=== PATIENT | male | born 1980 | race Caucasian/White ===

== ENCOUNTER 2016-09-09 15:20 | Emergency (ER) | payer SELFPAY ==
[~2016-09-09] VITALS: Ht 185.4 cm; Wt 72.6 kg
[~2016-09-09 15:20] MED LIST: CEPH500C PO
[2016-09-09] MEDS ORDERED: LIDO15SO2 MM (17:16)
[2016-09-09] MEDS ORDERED: AMOX-358 PO (17:16)
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
[2016-09-09 17:25] VITALS: BP 166/107
== END 2016-09-09 17:25 | disposition home or self-care (01) ==
LOC: EDUNIT# 15:20 → ER 15:21
DX: K02.9 Dental caries, unspecified (principal); K04.7 Periapical abscess without sinus; F17.210 Nicotine dependence, cigarettes, uncomplicated
CPT/HCPCS: 99282

== ENCOUNTER 2017-08-18 19:09 | Emergency (ER) | payer SELFPAY ==
[~2017-08-18] VITALS: Ht 185.4 cm; Wt 72.6 kg
[~2017-08-18 19:09] MED LIST changes: +AMOX-358 PO; +LIDO15SO2 MM
[2017-08-18] MEDS ORDERED: DEXAMETHASONE PF 10 MG/ML (DECADRON) VIAL IV STA (20:54)
[2017-08-18] MEDS ORDERED: NS IV 1000 ML 1,000 ML IV ONE (20:54)
[2017-08-18] MEDS ORDERED: ONDANSETRON 4 MG/2 ML (SDV) Z0FRAN ONE (20:55)
[2017-08-18] MEDS ORDERED: NS IV 1000 ML 1,000 ML ONE (20:55)
[2017-08-18] MEDS ORDERED: ONDANSETRON 4 MG/2 ML (SDV) Z0FRAN IVP ONE (21:00)
[2017-08-18] MEDS ORDERED: DEXAMETHASONE 10 MG/ML (DECADRON) 1 ML VIAL ONE (21:49)
[2017-08-18] MEDS ORDERED: RX-ONDANSETRON 4 MG ODT (ZOFRAN) PPK #4 ONE (22:00)
[2017-08-18] MEDS ORDERED: RX-ONDANSETRON 4 MG ODT (ZOFRAN) PPK #4 PO STA (22:00)
--- NOTE | 2017-08-18 22:03 | ED Cough/URI ---
General Chief Complaint: Cough/Cold/Flu Symptoms Stated Complaint: COUGH,FEVER N/V/D Nursing Triage Note: PT REPORTS COUGH/COLD/CONGESTION SINCE WEDNESDAY. PT REPORTS VOMITING/DIAHRREA SINCE WEDNESDAY. History of Present Illness Date Seen by Provider: Aug 18, 2017 Time Seen by Provider: 19:55 Initial Comments 37-year-old male reports nausea and vomiting, for 2 days. He reports a cough and cold for 3 days. He denies a fever. Timing/Duration: intermittent Severity/Quality: dry cough Prior Episodes/Possible Cause: no prior episodes Modifying Factors: Improves With Rest Associated Symptoms: cough, other (nausea and vomiting) Allergies and Home Medications Allergies Coded Allergies: No Known Drug Allergies (Unverified , 03/20/14) Home Medications Amoxicillin/Potassium Clav 1 Each Tablet, 1 EACH PO BID, #20 Prescribed by: CELINE CHACKO on 09/09/161715 Lidocaine HCl 15 Ml Solution, 15 ML MM Q 1-2 HOURS, #1 Prescribed by: CELINE CHACKO on 09/09/161715 Constitutional: no symptoms reported, see HPI Respiratory: see HPI, cough Gastrointestinal: see HPI, nausea, vomiting All Other Systems Reviewed Negative Unless Noted: Yes Past Rvlohqk-Obfnxr-Umsxvi Hx Patient Social History Alcohol Use: Rarely Uses Number of Drinks Today: AA Alcohol Beverage of Choice: Beer Recreational Drug Use: No Smoking Status: Current Everyday Smoker Type Used: Cigarettes Recent Foreign Travel: No Contact w/Someone Who Travel: No Recent Infectious Disease Expo: No Recent Hopitalizations: No Physical Abuse: No Sexual Abuse: No Mistreated: No Fear: No Seasonal Allergies Seasonal Allergies: No Surgeries History of Surgeries: Yes Surgeries: Adenoidectomy, Tonsillectomy Respiratory History of Respiratory Disorde: No Cardiovascular History of Cardiac Disorders: No Neurological History of Neurological Disord: No Reproductive System Hx Reproductive Disorders: No Genitourinary History of Genitourinary Disor: No Gastrointestinal History of Gastrointestinal Di: No Musculoskeletal History of Musculoskeletal Dis: No Endocrine History of Endocrine Disorders: No HEENT History of HEENT Disorders: No Cancer History of Cancer: No Psychosocial History of Psychiatric Problem: No Suicide Risk Score: 0 Integumentary History of Skin or Integumenta: No Blood Transfusions History of Blood Disorders: No Reviewed Nursing Assessment Reviewed/Agree w Nursing PMH: Yes Family Medical History Significant Family History: No Pertinent Family Hx Family Medial History: Patient reports no known family medical history. Physical Exam Vital Signs Vital Sign - Last 12Hours 08/18/17 19:46 Temp 99.3 Pulse 99 Resp 18 B/P (MAP) 149/91 (110) Pulse Ox 98 O2 Delivery Room Air Capillary Refill : Less Than 3 Seconds General Appearance: WD/WN, no apparent distress Eyes: Bilateral Eye Normal Inspection, Bilateral Eye PERRL, Bilateral Eye EOMI HEENT: PERRL/EOMI, normal ENT inspection, TMs normal, pharynx normal Neck: non-tender, full range of motion, supple, normal inspection, No lymphadenopathy (R), No lymphadenopathy (L) Respiratory: chest non-tender, lungs clear, normal breath sounds, no respiratory distress, no accessory muscle use Cardiovascular: normal peripheral pulses, regular rate, rhythm, no murmur Gastrointestinal: normal bowel sounds, non tender, soft, No distended, No guarding, No rebound Neurologic/Psychiatric: alert, normal mood/affect, oriented x 3 Skin: normal color Progress/Results/Core Measures Suspected Sepsis Recent Fever Within 48 Hours: Yes Infection Criteria Present: None New/Unexplained Altered Menta: No Sepsis Screen: No Definite Risk Sepsis Diagnosis: SIRS Temperature:99.3 Pulse: 99 Respiratory Rate: 18 Blood Pressure 149 /91 Mean: 110 Results/Orders Micro Results Microbiology 08/18/17 Influenza Types A,B Antigen (NOEMI) - Final, Complete My Orders Orders - PEPE SHEPHERD Saline Lock/Iv-Start (08/18/17 20:54) Ns Iv 1000 Ml (Sodium Chloride 0.9%) (08/18/17 20:54) Ondansetron Injection (Zofran Injectio (08/18/17 21:00) Dexamethasone Pf Injection (Decadron Pf (08/18/17 20:54) Ondansetron Injection (Zofran Injectio (08/18/17 20:55) Ns Iv 1000 Ml (Sodium Chloride 0.9%) (08/18/17 20:55) Dexamethasone Injection (Decadron Inject (08/18/17 21:49) Rx-Ondansetron Po (Rx-Zofran Po) (08/18/17 22:00) Rx-Ondansetron Po (Rx-Zofran Po) (08/18/17 22:00) Medications Given in ED Current Medications Medications Dose Ordered Sig/Dutch Route Start Time Stop Time Status Last Admin Dose Admin Ondansetron HCl 4 mg ONCE ONCE IVP 08/18/17 21:00 08/18/17 21:01 DC 08/18/17 20:57 4 MG Sodium Chloride 1,000 ml @ 0 mls/hr Q0M ONCE IV 08/18/17 20:54 08/18/17 20:56 DC 08/18/17 20:57 1,000 MLS/HR Vital Signs/I&O Vital Sign - Last 12Hours 08/18/17 08/18/17 19:46 19:46 Temp 99.3 Pulse 99 Resp 18 B/P (MAP) 149/91 (110) Pulse Ox 98 O2 Delivery Room Air Capillary Refill : Less Than 3 Seconds Blood Pressure Mean: 110 Progress Note : Time: 19:55 Progress Note Initial evaluation completed, recommended normal saline 1 L IV. Zofran 4 mg IV for nausea. 2039 patient reports symptoms are improving. Discharge instructions and return precautions reviewed. All questions answered. Departure Impression Impression: Primary Impression: Cough Additional Impression: Nausea and vomiting Qualified Codes: G43.A1 - Cyclical vomiting, intractable Disposition: HOME, SELF-CARE Condition: Stable Departure-Patient Inst. Decision time for Depature: 22:00 Referrals: NO,LOCAL PHYSICIAN (PCP/Family) Primary Care Physician Patient Instructions: Cough, Adult (DC), Nausea and Vomiting, Adult (DC) Add. Discharge Instructions: Clear liquid diet for the next 6 hours. Then progress to bland food as tolerated. Alternate between ibuprofen 600 mg and Tylenol 650 mg every 4 hours for fever or pain. Use nlxj-thh-yynofno cough and cold medication as needed. Use Zofran as needed for nausea and vomiting. Follow-up with your primary care provider in one to 2 days if symptoms are not improving. Return to emergency department for fever greater than 101 not relieved by Tylenol or ibuprofen, nausea and vomiting not improving with Zofran or new problems. All discharge instructions reviewed with patient and/or family. Voiced understanding. Work/School Note: Work Release Form Date Seen in the Emergency Department: Aug 18, 2017 Return to Work: Aug 20, 2017 Restrictions: No Restrictions PEPE SHEPHERD Aug 18, 2017 22:03
[2017-08-18 22:06] VITALS: BP 137/88
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
== END 2017-08-18 22:06 | disposition home or self-care (01) ==
LOC: EDUNIT# 19:09 → ER 19:11
DX: R05 Cough (principal); R11.2 Nausea with vomiting, unspecified; F17.210 Nicotine dependence, cigarettes, uncomplicated; Z90.89 Acquired absence of other organs
CPT/HCPCS: 87804; 96361; 96374; 96375

== ENCOUNTER 2022-01-14 14:28 | Emergency (ER) | payer SELFPAY ==
[~2022-01-14] VITALS: Ht 185 cm; Wt 73.0 kg
[~2022-01-14 14:28] MED LIST changes: -LIDO15SO2 MM; +LIDO20SO23 MM
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
[2022-01-14 15:06] VITALS: BP 133/89
== END 2022-01-14 15:07 | disposition home or self-care (01) ==
LOC: EDUNIT# 14:28 → ER 14:29
DX: F41.0 Panic disorder [episodic paroxysmal anxiety] (principal); R06.4 Hyperventilation; R20.2 Paresthesia of skin; F17.210 Nicotine dependence, cigarettes, uncomplicated; Z79.899 Other long term (current) drug therapy
CPT/HCPCS: 99281

== ENCOUNTER 2022-06-18 21:15 | Emergency (ER) | payer SELFPAY ==
[~2022-06-18] VITALS: Ht 185 cm; Wt 75.0 kg
[2022-06-18 21:15] VITALS: BP 126/94
[2022-06-18] MEDS ORDERED: QUET25TA PO (21:22)
--- NOTE | 2022-06-18 21:39 | ED Psychosocial ---
General Chief Complaint: Psych/Social Disorder Stated Complaint: PANIC ATTACK Nursing Triage Note: [facility]. REPORTS BECAME ANXIOUS WHEN DOG GOT OUT. C/O BURNING UNDER LEFT ARM. Source: patient Exam Limitations: no limitations History of Present Illness Date Seen by Provider: Jun 18, 2022 Time Seen by Provider: 21:12 Initial Comments Patient is a 42-year-old male who presents to the emergency department today with a chief complaint of a "panic attack". Patient states he has a history of panic disorder and takes Seroquel at night for this. He states he is running out of his medication and only has a couple of pills left. He is also complaining of a burning discomfort in his left axilla. He states reaching across from the left to his right shoulder intensifies his discomfort. He denies rashes or injury. He has never had pain like this before with a "panic attack". He states that he is upset because he has lost his service dog. He denies any associated chest pain, shortness of breath or nausea. No recent illnesses such as fevers or chills or productive cough. The pain does not radiate down his arm into his hand. No weakness in the extremity. All other review of systems reviewed and negative except as stated Timing/Duration: just prior to arrival (30 minutes) Severity: moderate Associated Symptoms: anxiety Allergies and Home Medications Allergies Coded Allergies: No Known Drug Allergies (Unverified , 03/20/14) Patient Home Medication List Home Medication List Reviewed: Yes Quetiapine Fumarate (Seroquel) 25 Mg Tablet, Unknown Dose PO, (Reported) Entered as Reported by: HARPAL MATTHEW on 06/18/222121 Last Action: New Order Discontinued Medications Amoxicillin/Potassium Clav (Augmentin 875-125 Tablet) 1 Each Tablet, 1 EACH PO BID Discontinued Reason: No Longer Taking Prescribed by: CELINE CHACKO on 09/09/161715 Last Action: Discontinued Lidocaine HCl (Lidocaine HCl Viscous) 15 Ml Solution, 15 ML MM Q 1-2 HOURS Discontinued Reason: No Longer Taking Prescribed by: CELINE CHACKO on 09/09/161715 Last Action: Discontinued Review of Systems Constitutional: see HPI Respiratory: no symptoms reported Cardiovascular: no symptoms reported Gastrointestinal: no symptoms reported Genitourinary: no symptoms reported Skin: other ("burning" in left axilla) Psychiatric/Neurological: Anxiety All Other Systems Reviewed Negative Unless Noted: Yes Past Saubpux-Cxtlje-Eabbcu Hx Patient Social History Tobacco Use?: Yes Substance use?: No Alcohol Use?: Yes Alcohol Frequency: Once in a while Pt feels they are or have been: No Immunizations Up To Date First/Initial COVID19 Vaccinat: NA Seasonal Allergies Seasonal Allergies: No Past Medical History Surgery/Hospitalization HX: ANXIETY, BIPOLAR T/A Surgeries: Yes Adenoidectomy, Tonsillectomy Respiratory: No Cardiac: No Neurological: No Reproductive Disorders: No Genitourinary: No Gastrointestinal: No Musculoskeletal: No Endocrine: No HEENT: No Cancer: No Psychosocial: No Integumentary: No Blood Disorders: No Family Medical History Patient reports no known family medical history. No Pertinent Family Hx Physical Exam Vital Signs - First Documented 06/18/22 21:15 Temp 36.2 Pulse 102 Resp 18 B/P (MAP) 126/94 (105) Pulse Ox 100 O2 Delivery Room Air Capillary Refill : Less Than 3 Seconds Height, Weight, BMI Height: 6'1.00" Weight: 160lbs. oz. 72.880700hk; 21.00 BMI Method:Stated General Appearance: WD/WN, mild distress HEENT: PERRL/EOMI Neck: normal inspection Respiratory: lungs clear, normal breath sounds, no respiratory distress, no ac cessory muscle use Cardiovascular: regular rate, rhythm, tachycardia (105) Gastrointestinal: normal bowel sounds, non tender, soft Extremities: normal range of motion, non-tender, normal inspection, normal capillary refill, other (left arm - normal ROM; no rashes; no reproducible tenderness) Neurologic/Psychiatric: alert, oriented x 3, other (ancxious) Appearance/Memory: disheveled, other (very dirty skin, covered in what appears to be "soot" all over his upper extremities, hands/wrists and forearms) Behavior/Eye Contact: avoids eye contact Skin: warm/dry Progress/Results/Core Measures Results/Orders My Orders Orders - MOISÉS VELASQUEZ MD Hydroxyzine Cap/Tab (Vistaril) (06/18/22 21:45) Ketorolac Injection (Toradol Injection) (06/18/22 21:45) Medications Given in ED Current Medications Medications Dose Ordered Sig/Dutch Route Start Time Stop Time Status Last Admin Dose Admin Hydroxyzine Pamoate 50 mg ONCE ONCE PO 06/18/22 21:45 06/18/22 21:46 DC 06/18/22 21:50 50 MG Ketorolac Tromethamine 30 mg ONCE ONCE IM 06/18/22 21:45 06/18/22 21:46 DC 06/18/22 21:50 30 MG Vital Signs/I&O 06/18/22 21:15 Temp 36.2 Pulse 102 Resp 18 B/P (MAP) 126/94 (105) Pulse Ox 100 O2 Delivery Room Air Blood Pressure Mean: 105 Departure Impression Primary Impression: Anxiety Additional Impression: Paresthesia and pain of left extremity Disposition: HOME, SELF-CARE Condition: Stable Departure-Patient Inst. Decision time for Depature: 21:37 Referrals: [facility] [place] REBEKAH,LOCAL PHYSICIAN (PCP) Primary Care Physician Patient Instructions: Anxiety, Adult ED Add. Discharge Instructions: continue to take your daily medications as prescribed. [facility]. Return to the ER for worsening pain especially with fever, vomiting, change of pain that makes you short of breath or any other emergent, concerning symptoms. MOISÉS VELASQUEZ MD Jun 18, 2022 21:39
[2022-06-18] MEDS ORDERED: hydrOXYzine (VISTARIL/ATARAX) 25 MG capsule/tablet PO ONE (21:45)
[2022-06-18] MEDS ORDERED: KETOROLAC 30 MG/ML VIAL IM ONE (21:45)
== END 2022-06-18 22:01 | disposition home or self-care (01) ==
LOC: EDUNIT# 21:18 → ER 21:20
DX: F41.0 Panic disorder [episodic paroxysmal anxiety] (principal); M79.622 Pain in left upper arm; Z28.310 Unvaccinated for COVID-19
CPT/HCPCS: 99284